=== PATIENT | female | born 1995 | race Caucasian/White ===

== ENCOUNTER 2020-08-07 18:51 | Emergency (ER) | payer SELFPAY ==
--- NOTE | 2020-08-07 19:15 | ER Document Report ---
ED Medical Screen (RME) - General Chief Complaint: Fever Stated Complaint: FEVER Time Seen by Provider: 08/07/20 19:11 Mode of Arrival: Ambulatory Information source: Patient Notes: 24-year-old female presents to ED for complaint of cough congestion body aches and fevers that started Friday. She states she does not know of anybody that she has been around it is positive for Covid but she is here with her significant other who has similar symptoms. She is alert oriented respirations regular nonlabored speaking in full sentences. The patient was evaluated during the global Covid 19 pandemic, and that diagnosis was suspected/considered upon their initial presentation. Their evaluation, treatment and testing was consistent with current guidelines for patients who present with complaints or symptoms that may be related to Covid 19. I have greeted and performed a rapid initial assessment of this patient. A comprehensive ED assessment and evaluation of the patient, analysis of test results and completion of medical decision making process will be conducted by an additional ED providers. Past Medical History - General Information source: Patient - Social History Cigarette use (# per day): No Chew tobacco use (# tins/day): No Frequency of alcohol use: None Drug Abuse: None Lives with: Spouse/Significant other Family history: Reviewed & Not Pertinent - Past Medical History Cardiac Medical History: Reports: None Pulmonary Medical History: Reports: None EENT Medical History: Reports: None Neurological Medical History: Reports: None Endocrine Medical History: Reports: Hx Diabetes Mellitus Type 2, Hx Hypothyroidism Renal/ Medical History: Reports: None Malignancy Medical History: Reports: None GI Medical History: Reports: None Musculoskeltal Medical History: Reports None Skin Medical History: Reports None Psychiatric Medical History: Reports: Hx Attention Deficit Hyperactivity Disorder, Hx Bipolar Disorder, Hx Depression Traumatic Medical History: Reports: None Infectious Medical History: Reports: None Surgical Hx: Negative Past Surgical History: Reports: None - Immunizations Immunizations up to date: Yes Hx Diphtheria, Pertussis, Tetanus Vaccination: Yes - 2017 Physical Exam - Vital signs Vitals: Temp Pulse Resp BP Pulse Ox 98.3 F 95 16 149/94 H 97 08/07/20 18:59 08/07/20 18:59 08/07/20 18:59 08/07/20 18:59 08/07/20 18:59 Course - Vital Signs Vital signs: Temp Pulse Resp BP Pulse Ox 98.3 F 95 16 149/94 H 97 08/07/20 18:59 08/07/20 18:59 08/07/20 18:59 08/07/20 18:59 08/07/20 18:59
--- NOTE | 2020-08-07 21:23 | RADIOLOGY REPORT (SQ) ---
EXAM DESCRIPTION: CHEST SINGLE VIEW CLINICAL HISTORY: 24 years Female, Congestion fever COMPARISON: None. FINDINGS: Lungs: Lungs are clear. No pneumonia or edema. No pneumothorax or pleural effusion. Mediastinum: Cardiac and mediastinal silhouette are normal. Bones: Osseous structures are normal. IMPRESSION: Unremarkable single view of the chest.
[2020-08-07 22:27] LABS: APPEARANCE,URINE SLIGHTLY-CLOUDY; BILIRUBIN,URINE NEGATIVE (NEGATIVE); COLOR,URINE AMBER; GLUCOSE, URINE >=500 mg/dL (NEGATIVE); KETONES,URINE NEGATIVE (NEGATIVE); LEUKOCYTE ESTERASE,URINE NEGATIVE (NEGATIVE); NITRITE,URINE NEGATIVE (NEGATIVE); PROTEIN,URINE 30 mg/dL (NEGATIVE); URINE SPECIFIC GRAVITY 1.027; UROBILINOGEN,URINE NEGATIVE mg/dL (<2.0)
[2020-08-07 22:51] VITALS: BP 133/98
[2020-08-07 22:53] LABS: A TYPE INFLUENZA AG NEGATIVE (NEGATIVE); B INFLUENZA AG NEGATIVE (NEGATIVE)
--- NOTE | 2020-08-07 23:05 | ER Document Report ---
ED General - General Chief Complaint: Flu Symptoms Stated Complaint: FEVER Time Seen by Provider: 08/07/20 19:11 Mode of Arrival: Ambulatory Information source: Patient Notes: Patient presents to the ER for evaluation of dry cough with chest congestion, intermittent fever, body aches, chills, fatigue times several days. The patient has no known COVID-19 exposures. She states her significant other has similar symptoms. She denies shortness of breath. She denies chest pain. She denies nausea or vomiting. She denies abdominal pain. Nursing notes reviewed and past medical, social, and family histories reviewed and validated. TRAVEL OUTSIDE OF THE [place] IN LAST 30 DAYS: No - Related Data Allergies/Adverse Reactions: No Known Allergies Allergy (Unverified 08/07/20 20:31) Past Medical History - General Information source: Patient - Social History Smoking Status: Never Smoker Cigarette use (# per day): No Chew tobacco use (# tins/day): No Frequency of alcohol use: None Drug Abuse: None Lives with: Spouse/Significant other Family History: Reviewed & Not Pertinent Patient has suicidal ideation: No Patient has homicidal ideation: No - Past Medical History Cardiac Medical History: Reports: None Pulmonary Medical History: Reports: None EENT Medical History: Reports: None Neurological Medical History: Reports: None Endocrine Medical History: Reports: Hx Diabetes Mellitus Type 2, Hx Hypothyroidism Renal/ Medical History: Reports: None Malignancy Medical History: Reports: None GI Medical History: Reports: None Musculoskeletal Medical History: Reports None Skin Medical History: Reports None Psychiatric Medical History: Reports: Hx Attention Deficit Hyperactivity Disorder, Hx Bipolar Disorder, Hx Depression Traumatic Medical History: Reports: None Infectious Medical History: Reports: None Surgical Hx: Negative Past Surgical History: Reports: None - Immunizations Immunizations up to date: Yes Hx Diphtheria, Pertussis, Tetanus Vaccination: Yes - 2017 Review of Systems - Review of Systems Notes: Constitutional: Positive for fever. HENT: Negative for sore throat. Eyes: Negative for visual changes. Cardiovascular: Negative for chest pain. Respiratory: Negative for shortness of breath. Positive for dry cough. Gastrointestinal: Negative for abdominal pain, vomiting or diarrhea. Genitourinary: Negative for dysuria. Musculoskeletal: Negative for back pain. Skin: Negative for rash. Neurological: Negative for headaches, weakness or numbness. 10 point ROS negative except as marked above and in HPI. Physical Exam - Vital signs Vitals: Temp Pulse Resp BP Pulse Ox 98.3 F 95 16 149/94 H 97 08/07/20 18:59 08/07/20 18:59 08/07/20 18:59 08/07/20 18:59 08/07/20 18:59 - Notes Notes: CONSTITUTIONAL: Well appearing. No acute distress. SKIN: Warm, dry, and intact without rash EYES: Extraocular movements are grossly intact, clear conjunctiva HENT: Normocephalic, atraumatic, moist mucus membranes NECK: No obvious swelling, normal range of motion PULMONARY: Normal chest rise and fall. Breath sounds clear and equal bilaterally. No respiratory distress or stridor CARDIOVASCULAR: Regular rate. No murmurs, rubs, gallops. Distal extremities are warm and well perfused. NEUROLOGIC: Normal speech, moves all extremities. MUSCULOSKELETAL: No gross deformities, atraumatic PSYCHIATRIC: Normal mood and affect Course - Re-evaluation Re-evalutation: 08/07/20 23:04 Rechecked patient who has responded well to treatment in the ER. Discussed with patient: results, diagnosis, treatment plan, and need for follow-up. Return to the emergency department warnings were given. All questions and concerns were addressed. The plan is agreed with and understood. Patient is stable and ready for discharge. - Vital Signs Vital signs: Temp Pulse Resp BP Pulse Ox 98.3 F 109 H 18 133/98 H 99 08/07/20 22:47 08/07/20 22:47 08/07/20 22:47 08/07/20 22:47 08/07/20 22:47 - Laboratory Laboratory results interpreted by me: 08/07/20 22:15 Urine Protein 30 H Urine Glucose (UA) >=500 H Discharge - Discharge Clinical Impression: Viral upper respiratory tract infection with cough Condition: Stable Disposition: HOME, SELF-CARE Instructions: COVID-19 Guidance for Persons Under Investigation
== END 2020-08-07 23:18 | disposition home or self-care (01) ==
LOC: ER 18:51
DX: U07.1 COVID-19 (principal); J06.9 Acute upper respiratory infection, unspecified; R50.9 Fever, unspecified; M79.10 Myalgia, unspecified site; R53.83 Other fatigue
CPT/HCPCS: 99284; 87070; 87880; 87635; 81025; 81001; 87804; 71045; C9803

== ENCOUNTER 2020-08-13 00:18 | Emergency (ER) | payer SELFPAY ==
--- NOTE | 2020-08-13 00:31 | ER Document Report ---
ED Medical Screen (RME) - General Chief Complaint: Chest Pain Stated Complaint: SHORTNESS OF BREATH Time Seen by Provider: 08/13/20 00:29 Mode of Arrival: Ambulatory Information source: Patient Notes: 25-year-old female presented to ED for complaint of severe chest pain and coughing and short of breath. She states it started about 30 minutes before coming to the emergency room. She states the cough is coming down a little bit. She states the chest pain is coming down some as well. She was tested positive for Covid on August 07. The test results came back on the but she was a ctually tested on the . Patient is alert oriented respirations regular nonlabored at this time. She does have a dry cough. Will get chest pain protocol as well as chest x-ray. I have greeted and performed a rapid initial assessment of this patient. A comprehensive ED assessment and evaluation of the patient, analysis of test results and completion of medical decision making process will be conducted by an additional ED providers. TRAVEL OUTSIDE OF THE [place] IN LAST 30 DAYS: No - Related Data Allergies/Adverse Reactions: No Known Allergies Allergy (Unverified 08/07/20 20:31) Past Medical History - Social History Family history: Reviewed & Not Pertinent Endocrine Medical History: Reports: Hx Diabetes Mellitus Type 2, Hx Hypothyroidism Psychiatric Medical History: Reports: Hx Attention Deficit Hyperactivity Disorder, Hx Bipolar Disorder, Hx Depression - Immunizations Immunizations up to date: Yes Hx Diphtheria, Pertussis, Tetanus Vaccination: Yes - 2016 Physical Exam - Vital signs Vitals: Temp Pulse Resp BP Pulse Ox 99.3 F 103 H 18 126/89 H 96 08/13/20 00:23 08/13/20 00:23 08/13/20 00:23 08/13/20 00:23 08/13/20 00:23 Course - Vital Signs Vital signs: Temp Pulse Resp BP Pulse Ox 99.3 F 103 H 18 126/89 H 96 08/13/20 00:23 08/13/20 00:23 08/13/20 00:23 08/13/20 00:23 08/13/20 00:23
[2020-08-13] MEDS ORDERED: ACETAMINOPHEN 325 MG TABLET PO ONE (00:33)
[2020-08-13 01:43] LABS: ABSOLUTE LYMPHOCYTES (AUTO) 1.8 10^3/uL (0.5-4.7); ABSOLUTE MONOCYTES (AUTO) 0.3 10^3/uL (0.1-1.4); ABSOLUTE NEUT (AUTO) 4.2 10^3/uL (1.7-8.2); BASOPHILS % (AUTO) 0.3 % (0-2); EOSINOPHILS % (AUTO) 0.4 % (0-6); HEMATOCRIT 38.1 % (36.0-47.0); HEMOGLOBIN 12.4 g/dL (12.0-15.5); LYMPHOCYTES % (AUTO) 28.2 % (13-45); MEAN CORPUSCULAR HEMOGLOBIN 26.8 pg (27.0-33.4); MEAN CORPUSCULAR HGB CONC 32.4 g/dL (32.0-36.0); MEAN CORPUSCULAR VOLUME 83 fl (80-97); MONOCYTES % (AUTO) 4.5 % (3-13); PLATELET COUNT 197 10^3/uL (150-450); RED BLOOD COUNT 4.62 10^6/uL (3.72-5.28); RED CELL DISTRIBUTION WIDTH 14.3 % (11.5-14.0); SEGMENTED NEUTROPHILS % (AUTO) 66.6 % (42-78); TOTAL CELLS COUNTED % (AUTO) 100 %; WHITE BLOOD COUNT 6.3 10^3/uL (4.0-10.5)
--- NOTE | 2020-08-13 02:04 | RADIOLOGY REPORT (SQ) ---
EXAM: CHEST SINGLE VIEW CLINICAL INDICATION: 25-year-old female with cough. TECHNIQUE: Single view, AP portable chest was obtained. COMPARISON: 08/07/2020. FINDINGS: Unremarkable cardiac and mediastinal silhouette. Heart size is normal. Low lung volumes grossly clear without focal opacity, pneumothorax or pleural effusions. The visualized bones are within normal limits. IMPRESSION: No acute cardiopulmonary abnormalities.
--- NOTE | 2020-08-13 02:06 | ER Document Report ---
ED General - General Chief Complaint: Chest Pain Stated Complaint: SHORTNESS OF BREATH Time Seen by Provider: 08/13/20 00:29 Mode of Arrival: Ambulatory TRAVEL OUTSIDE OF THE [place] IN LAST 30 DAYS: No - HPI Notes: 25-year-old female with past medical history of bipolar disorder, generalized anxiety disorder, asthma, diabetes to the emergency department with complaints of progressively worsening shortness of breath, inspiratory chest pain, cough. She states that she was diagnosed with COVID-19. She was swabbed on the and received a call just several days ago that she was positive. She states that she has not been running any fever. She is just been taking Motrin at home for body aches. She states tonight that she got a lot more short of breath. She states that she thinks that the Covid is potentially making her asthma irritated. She states she does not have an inhaler at home. She is never been hospitalized or intubated for her asthma. She admits that she has been told that she is diabetic in the past. However, she does not have a primary care physician in the last time she received a medication for diabetes, she did not do well with it. She states this was Janumet. She has in the past been on Metformin and tolerated that well. - Related Data Allergies/Adverse Reactions: No Known Allergies Allergy (Unverified 08/07/20 20:31) Home Medications: topamax, celexa, triliptal, bcp Past Medical History - General Information source: Patient - Social History Smoking Status: Never Smoker Frequency of alcohol use: None Drug Abuse: None Family History: Reviewed & Not Pertinent Endocrine Medical History: Reports: Hx Diabetes Mellitus Type 2, Hx Hypothyroidism Psychiatric Medical History: Reports: Hx Attention Deficit Hyperactivity Disorder, Hx Bipolar Disorder, Hx Depression - Immunizations Immunizations up to date: Yes Hx Diphtheria, Pertussis, Tetanus Vaccination: Yes - 2017 Review of Systems - Review of Systems Constitutional: Weakness. denies: Chills, Fever EENT: Throat pain Cardiovascular: See HPI, Chest pain Respiratory: Cough, Hurts to breathe, Short of breath, Sputum, Wheezing Gastrointestinal: denies: Abdominal pain, Diarrhea, Nausea, Vomiting Genitourinary: No symptoms reported Female Genitourinary: No symptoms reported Musculoskeletal: No symptoms reported Skin: No symptoms reported Neurological/Psychological: No symptoms reported -: Yes All other systems reviewed and negative Physical Exam - Vital signs Vitals: Temp Pulse Resp BP Pulse Ox 99.3 F 103 H 18 126/89 H 96 08/13/20 00:23 08/13/20 00:23 08/13/20 00:23 08/13/20 00:23 08/13/20 00:23 Interpretation: Tachycardic - Notes Notes: PHYSICAL EXAMINATION: GENERAL: Well-appearing, well-nourished and in no acute distress. Obese female HEAD: Atraumatic, normocephalic. EYES: Pupils equal round and reactive to light, extraocular movements intact, sclera anicteric, conjunctiva are normal. ENT: nares patent, oropharynx clear without exudates. Moist mucous membranes. TMs clear bilaterally NECK: Normal range of motion, supple without lymphadenopathy LUNGS: Decreased breath sounds throughout. She has poor inspiratory effort. There is no wheezing. She is not in respiratory distress. She is not tripoding. She can speak to me in full sentences.. HEART: Regular rate and rhythm without murmurs ABDOMEN: Soft, obese, nontender, normoactive bowel sounds. No guarding, no rebound. No masses appreciated. EXTREMITIES: Normal range of motion, no pitting or edema. No cyanosis. NEUROLOGICAL: No focal neurological deficits. Moves all extremities spontaneously and on command. PSYCH: Normal mood, normal affect. SKIN: Warm, Dry, normal turgor, no rashes or lesions noted. Course - Re-evaluation Re-evalutation: 08/13/20 noted blood sugar. Patient has not been compliant with her medications for diabetes. She is not in diabetic ketoacidosis. Noted transaminitis which is pretty consistent with COVID-19. She does not have pneumonia on her chest x- ray. Plan to give albuterol, very gentle IV bolus, Toradol, reevaluate her blood sugar. 08/13/20 05:27 Noted persistently same accucheck despite patient getting insulin. She has not had anything to eat and no drinks with calories or sugar. Will send a BMP. 08/13/20 06:10 We double checked patient's sugar with a BMP and indeed it still remains 370. I offered her further insulin but she has declined it. She states she would like to have Metformin and be discharged home. She is not in ketoacidosis. I have encouraged her to return if she gets worse at all. We will start her on Metformin and give her information for [facility] in [facility]. She is feeling much improved in her chest since albuterol treatment. Noted elevated LFTs -- likely this is related to the COVID. She agrees with the plan. Impression: COVID-19, cough, uncontrolled diabetes. Plan will be to send her home with cough medicine, albuterol, Metformin. She is to follow-up with [place] or [facility]. She has been urged to return if she gets worse. She agrees with plan. - Vital Signs Vital signs: Temp Pulse Resp BP Pulse Ox 98.6 F 86 18 115/77 99 08/13/20 02:06 08/13/20 02:06 08/13/20 04:01 08/13/20 04:00 08/13/20 04:01 - Laboratory Result Diagrams: 08/13/20 01:26 08/13/20 05:09 Laboratory results interpreted by me: 08/13/20 08/13/20 08/13/20 01:26 01:26 03:57 MCH 26.8 L RDW 14.3 H Sodium 133.4 L Chloride 96 L BUN 6 L Creatinine Glucose 362 H POC Glucose 374 H Calcium AST 113 H ALT 117 H Alkaline Phosphatase 235 H 08/13/20 08/13/20 08/13/20 04:50 05:00 05:09 MCH RDW Sodium 131.2 L Chloride BUN 6 L Creatinine 0.45 L Glucose 372 H POC Glucose 373 H 368 H Calcium 8.3 L AST ALT Alkaline Phosphatase - Diagnostic Test Radiology reviewed: Image reviewed, Reports reviewed Discharge - Discharge Clinical Impression: COVID-19, Cough, Shortness of breath, Hyperglycemia Uncontrolled diabetes mellitus Qualifiers: Diabetes mellitus type: type 2 Glycemic state: with hyperglycemia Qualified Code(s): E11.65 - Type 2 diabetes mellitus with hyperglycemia Condition: Stable Disposition: HOME, SELF-CARE Instructions: Hyperglycemia ([facility]) Additional Instructions: Please quarantine in your home for the appropriate 2 weeks since you have been diagnosed with COVID-19. Today you were shown to have hyperglycemia(elevated blood sugar). Will be discharged home with Metformin. Please follow-up with [place] or [facility]. Please follow-up with Nathanael Smith, our ER case managerat [phone]. She can be reached Friday through Friday 8-5. Prescriptions: Benzonatate [Tessalon Perles 100 mg Capsule] 100 mg PO Q8HP PRN #40 capsule PRN Reason: Metformin HCl [Glucophage 500 mg Tablet] 500 mg PO BID #60 tablet Albuterol Sulfate [Proair HFA Inhalation Aerosol 8.5 gm MDI] 2 puff IH Q4H PRN #1 mdi PRN Reason: Forms: Return to Work Referrals: [facility] [Provider Group] - Follow up in 1 week (for PCP follow up) [facility] [Provider Group] - Follow up in 1 week (for PCP follow up)
[2020-08-13 02:08] LABS: ALKALINE PHOSPHATASE 235 U/L (38-126); ANION GAP 12 (5-19); ASPARTATE AMINO TRANSFERASE 113 U/L (14-36); BILIRUBIN,DIRECT 0.3 mg/dL (0.0-0.4); BILIRUBIN,TOTAL 0.4 mg/dL (0.2-1.3); BLOOD UREA NITROGEN 6 mg/dL (7-20); CALCIUM 8.7 mg/dL (8.4-10.2); CARBON DIOXIDE 25 mmol/L (22-30); CHLORIDE 96 mmol/L (98-107); GLUCOSE 362 mg/dL (75-110); TOTAL PROTEIN 7.8 g/dL (6.3-8.2)
[2020-08-13] MEDS ORDERED: NORMAL SALINE 500 ML IV ONE (02:45)
[2020-08-13] MEDS ORDERED: IPRATROPIUM/ALBUTEROL 0.5-2.5 MG/3 ML AMPUL NEB ONE (02:45)
[2020-08-13] MEDS ORDERED: KETOROLAC TROMETHAMINE INJ/PF 30 MG/1 ML SDV IV ONE (02:45)
[2020-08-13] MEDS ORDERED: INSULIN REG, HUMAN 100 UNIT/ML 3 ML VIAL (PYX) IV ONE ×2 (03:58→06:03)
[2020-08-13 05:58] LABS: ANION GAP 8 (5-19); BLOOD UREA NITROGEN 6 mg/dL (7-20); CALCIUM 8.3 mg/dL (8.4-10.2); CARBON DIOXIDE 23 mmol/L (22-30); CHLORIDE 100 mmol/L (98-107); GLUCOSE 372 mg/dL (75-110); POTASSIUM 4.2 mmol/L (3.6-5.0)
[2020-08-13 06:18] VITALS: BP 104/75
--- NOTE | 2020-08-13 08:38 | EKG REPORT ---
SEVERITY:- NORMAL ECG - SINUS RHYTHM BASELINE ARTEFACT : Confirmed by: Lloyd Haley MD 13-Aug-2020 08:38:07
== END 2020-08-13 06:19 | disposition home or self-care (01) ==
LOC: ER 00:18
DX: U07.1 COVID-19 (principal); E11.65 Type 2 diabetes mellitus with hyperglycemia; J45.909 Unspecified asthma, uncomplicated; R74.01 Elevation of levels of liver transaminase levels; R06.02 Shortness of breath; R07.1 Chest pain on breathing; R05 Cough; R53.1 Weakness; R07.0 Pain in throat; F32.9 Major depressive disorder, single episode, unspecified; Z79.899 Other long term (current) drug therapy; Z79.3 Long term (current) use of hormonal contraceptives; Z91.14 Patient's other noncompliance with medication regimen
CPT/HCPCS: 93005; 94640; 99285; 96361; 96374; 96375; 36415; 82962; 83735; 85025; 80053; 84484; 71045; 93010; J1885; J1815; J7040